=== PATIENT | female | born 1990 | race Caucasian/White ===

== ENCOUNTER 2016-09-04 00:33 | Emergency (ER) | payer OTHER ==
[~2016-09-04] VITALS: Ht 157.5 cm; Wt 62.1 kg
[~2016-09-04 00:33] MED LIST: AFRIN,GENASAL D15 ML BOTH NARES; BCP; BENTYL20 MG PO; CARAFATE1 GM PO; HYCODAN SYRUP480 ML PO; LOMOTIL TABLET1 EACH PO; LORTAB 5-325 M1 EACH PO; MOTRIN600 MG PO; NAPROSYN500 MG PO; NORCO 5/3251 TABLET PO; PERCOCET 5/31 TABLET PO; PROTONIX40 MG PO; TESSALON200 MG PO; ZITHROMAX Z-PA250 MG PO; ZOFRAN ODT4 MG PO; ZOFRAN4 MG PO
[2016-09-04 01:44] LABS: HEMATOCRIT 42.4 % (36.0-46.0); MCH 28.7 PG (29.0-34.0); MCHC 35.1 G/DL (30.0-36.0); MCV 81.5 FL (83-99); MEAN PLAT.VOLUME 10.9 uM^3 (9.5-12.4); PLATELET COUNT 339 K/uL (156-360); RBC DIS.WIDTH-CV 12.3 % (11.8-14.6); RBC DIS.WIDTH-SD 35.7 % (39-53); WHITE BLOOD COUNT 14.5 K/uL (4.1-10.2)
[2016-09-04 02:05] LABS: CHLORIDE 105 mEq/L (99-109); POTASSIUM 3.7 mEq/L (3.7-5.4); SODIUM 136 mEq/L (136-147)
[2016-09-04 02:07] LABS: GLUCOSE 112 mg/dL (70-99)
[2016-09-04 02:08] LABS: ANION GAP 11 MEQ/L (2-14)
[2016-09-04 02:09] LABS: TOTAL BILIRUBIN 1.7 mg/dL (0.0-1.0)
[2016-09-04 02:10] LABS: ALKALINE PHOSPHATASE 75 IU/L (3-129)
[2016-09-04 02:11] LABS: GFR ESTIMATE (CALCULATED) > 59 mL/min/
[2016-09-04 02:12] LABS: DIRECT BILIRUBIN 0.6 mg/dL (0.0-0.3); UREA NITROGEN (BUN) 14 mg/dL (9-23)
[2016-09-04 02:14] LABS: LIPASE 21 U/L (1.0-51.0)
[2016-09-04 02:21] LABS: QUANTITATIVE HCG < 4.0 MIU/ML
[2016-09-04] MEDS ORDERED: ZOFRAN8 MG PO (03:42)
[2016-09-04 04:12] VITALS: BP 110/66
== END 2016-09-04 04:13 | disposition home or self-care (01) ==
LOC: EME 00:33
DX: R10.84 Generalized abdominal pain (principal); R11.2 Nausea with vomiting, unspecified; R19.7 Diarrhea, unspecified; D72.829 Elevated white blood cell count, unspecified; R17 Unspecified jaundice
CPT/HCPCS: 80048; 80076; 81003; 83690; 84702; 85027; 99281; 99284; J2405; J2550; J7030

== ENCOUNTER 2017-07-14 11:44 | Emergency (ER) | payer OTHER ==
[~2017-07-14] VITALS: Ht 157.5 cm; Wt 65.1 kg
[~2017-07-14 11:44] MED LIST changes: +ZOFRAN8 MG PO
[2017-07-14 14:05] LABS: HEMATOCRIT 39.6 % (36.0-46.0); MCH 28.5 PG (29.0-34.0); MCHC 33.8 G/DL (30.0-36.0); MCV 84.1 FL (83-99); MEAN PLAT.VOLUME 10.5 uM^3 (9.5-12.4); PLATELET COUNT 290 K/uL (156-360); RBC DIS.WIDTH-CV 12.3 % (11.8-14.6); RBC DIS.WIDTH-SD 37.2 % (39-53); RED BLOOD COUNT 4.71 M/uL (3.80-5.20); WHITE BLOOD COUNT 5.6 K/uL (4.1-10.2)
[2017-07-14 14:13] LABS: CHLORIDE 105 mEq/L (99-109); SODIUM 139 mEq/L (136-147)
[2017-07-14 14:15] LABS: GLUCOSE 89 mg/dL (70-99)
[2017-07-14 14:17] LABS: ANION GAP 6 MEQ/L (2-14)
[2017-07-14 14:19] LABS: GFR ESTIMATE (CALCULATED) > 59 mL/min/
[2017-07-14 14:20] LABS: UREA NITROGEN (BUN) 7 mg/dL (9-23)
[2017-07-14 14:24] LABS: ADD MIUA? YES; BILIRUBIN NEGATIVE; BLOOD NEGATIVE; COLOR YELLOW ((YELLOW)); GLUCOSE (STRIP) NEGATIVE; KETONES NEGATIVE; LEUKOCYTES NEGATIVE; NITRITE NEGATIVE; PROTEIN (STRIP) NEGATIVE; SPECIFIC GRAVITY 1.006 (1.000-1.030); UROBILINOGEN 0.2 MG/DL (0.2-1.0)
[2017-07-14 14:27] LABS: QUANTITATIVE HCG < 4.0 MIU/ML
[2017-07-14 14:32] LABS: BACTERIA RARE /HPF; EPITHELIAL CELLS 4+ /HPF; GRANULAR CASTS 0-5 /LPF; MUCUS NONE SEEN /LPF; RED BLOOD CELLS 0-5 /HPF (0-5); WHITE BLOOD CELLS 0-5 /HPF (0-5)
[2017-07-14 17:26] VITALS: BP 110/67
== END 2017-07-14 17:30 | disposition home or self-care (01) ==
LOC: EME 11:44
PROVIDERS: Nurse Practitioner Family
DX: N83.209 Unspecified ovarian cyst, unspecified side (principal); R10.2 Pelvic and perineal pain
CPT/HCPCS: 74177; 80048; 81003; 84702; 85027; 99281; 99284; J7030

== ENCOUNTER 2017-10-20 10:49 | Emergency (ER) | payer OTHER ==
[~2017-10-20] VITALS: Ht 157.5 cm; Wt 65.7 kg
[2017-10-20 12:45] VITALS: BP 116/73
== END 2017-10-20 12:46 | disposition home or self-care (01) ==
LOC: EME 10:49
DX: S46.211A Strain of muscle, fascia and tendon of other parts of biceps, right arm, initial encounter (principal); X50.9XXA Other and unspecified overexertion or strenuous movements or postures, initial encounter; Y99.0 Civilian activity done for income or pay
CPT/HCPCS: 73030; 99281; 99284